=== PATIENT | female | born 1990 | race Caucasian/White ===

== ENCOUNTER 2017-03-27 18:35 | Emergency (ER) | payer SELFPAY ==
[~2017-03-27] VITALS: Wt 104.3 kg
[~2017-03-27 18:35] MED LIST: AMOXICILLIN500 M2 PO; AMOXICILLIN500 M3 PO; ANAPROX DS550 MG PO; BACTRIM DS 8001 TA1 PO; CLINDAMYCIN HC300 MG PO; DICYCLOMINE HCL10 MG PO; Fioricet 325 MG1 TAB PO; HYDROCODONE BIT1 T11 PO; IMITREX50 MG PO; INDERAL LA120 M1 PO; MEDROL DOSEPAK4 MG PO; PERCOCET 325 MG1 TA6 PO; PREDNISONE10 MG PO; PREDNISONE50 MG PO; ROBITUSSIN AC 110 ML PO; VENTOLIN H0.09 MG/AC INH; ZANTAC 150150 MG PO; Zofran4 MG PO
[2017-03-27] MEDS ORDERED: TIZANIDINE HCL4 MG PO (19:00)
[2017-03-27] MEDS ORDERED: LATU40TA PO (19:00)
[2017-03-27] MEDS ORDERED: ESCITALOPRAM OX20 MG PO (19:00)
[2017-03-27 19:47] LABS: BASO # 0.1 10*3/uL (0.0-0.1); BASO % 0.5 % (0.0-1.0); EOS # 0.1 10*3/uL (0.0-0.4); EOS % 0.8 % (1.0-4.0); HEMATOCRIT 40.8 % (37.0-47.0); IG # 0.1 10*3/uL (0.0-0.1); LYMPH # 1.9 10*3/uL (1.3-4.4); LYMPH % 14.6 % (27.0-41.0); MEAN CELL VOLUME 86.8 fl (81.0-99.0); MEAN CORPUSCULAR HGB 29.8 pg (27.0-31.0); MEAN CORPUSCULAR HGB CONC 34.3 g/dl (33.0-37.0); MEAN PLATELET VOLUME 8.8 fl (9.6-12.3); MONO # 0.7 10*3/uL (0.1-1.0); MONO % 5.6 % (3.0-9.0); NEUT # 10.1 10*3/uL (2.3-7.9); PLATELET COUNT AUTOMATED 345 10*3/uL (130-400); RED CELL DISTRI WIDTH 11.9 % (0-14.5)
[2017-03-27 19:52] LABS: BILIRUBIN NEGATIVE (NEGATIVE); BLOOD NEGATIVE (NEGATIVE); CLARITY SL CLOUDY (CLEAR); COLOR YELLOW (YELLOW); GLUCOSE NEGATIVE (NEGATIVE); KETONE NEGATIVE (NEGATIVE); LEUKO ESTERASE TRACE (NEGATIVE); NITRITE NEGATIVE (NEGATIVE); PROTEIN 2+ (NEGATIVE)
[2017-03-27 19:56] LABS: URINE REFLEX COMMENT YES (NO)
[2017-03-27 19:57] LABS: BACTERIA TRACE
[2017-03-27 19:58] LABS: EPITHELIAL CELLS 31-40
[2017-03-27 20:10] LABS: ALBUMIN 3.7 gm/dl (3.1-4.5); ALKALINE PHOSPHATASE 62 U/L (45-117); BILIRUBIN, TOTAL 0.5 mg/dl (0.2-1.0); BUN 15 mg/dl (7-24); CARBON DIOXIDE 26 mmol/L (21-32); CHLORIDE 104 mmol/L (98-107); EST GLOM FILT AFRICAN AMERICAN > 60 ml/min; GLUCOSE 87 mg/dL (65-99); POTASSIUM 3.7 mmol/L (3.5-5.1); SGOT/AST 20 IU/L (3-35); SGPT/ALT 33 U/L (12-78); SODIUM 140 mmol/L (136-145); TOTAL PROTEIN 8.1 gm/dL (6.4-8.2)
[2017-03-27] MEDS ORDERED: ZOFRAN ODT4 MG SL (21:08)
[2017-03-27] MEDS ORDERED: BACTRIM DS 8001 TA1 PO (21:08)
== END 2017-03-28 00:02 | disposition home or self-care (01) ==
LOC: ED 18:35
PROVIDERS: Physician Assistant
DX: N30.00 Acute cystitis without hematuria (principal); R11.2 Nausea with vomiting, unspecified; Z88.1 Allergy status to other antibiotic agents; Z90.49 Acquired absence of other specified parts of digestive tract

== ENCOUNTER 2017-05-04 10:47 | Emergency (ER) | payer SELFPAY ==
[~2017-05-04] VITALS: Wt 104.3 kg
[~2017-05-04 10:47] MED LIST changes: +ESCITALOPRAM OX20 MG PO; +LATU40TA PO; +TIZANIDINE HCL4 MG PO; +ZOFRAN ODT4 MG SL
[2017-05-04 11:06] LABS: BASO % 0.6 % (0.0-1.0); EOS # 0.1 10*3/uL (0.0-0.4); EOS % 1.9 % (1.0-4.0); HEMATOCRIT 42.1 % (37.0-47.0); HEMOGLOBIN 14.1 g/dl (12.0-16.0); LYMPH # 1.4 10*3/uL (1.3-4.4); LYMPH % 20.5 % (27.0-41.0); MEAN CELL VOLUME 88.6 fl (81.0-99.0); MEAN CORPUSCULAR HGB 29.7 pg (27.0-31.0); MEAN CORPUSCULAR HGB CONC 33.5 g/dl (33.0-37.0); MEAN PLATELET VOLUME 9.3 fl (9.6-12.3); MONO # 0.4 10*3/uL (0.1-1.0); MONO % 5.9 % (3.0-9.0); NEUT # 4.8 10*3/uL (2.3-7.9); NEUT % 70.8 % (47.0-73.0); PLATELET COUNT AUTOMATED 274 10*3/uL (130-400); RED BLOOD COUNT 4.75 10*6/uL (4.10-5.10); RED CELL DISTRI WIDTH 12.1 % (0-14.5); WHITE BLOOD COUNT 6.8 10*3/uL (4.8-10.8)
[2017-05-04 11:21] LABS: ALBUMIN 3.7 gm/dl (3.1-4.5); ALKALINE PHOSPHATASE 64 U/L (45-117); BUN 13 mg/dl (7-24); CHLORIDE 103 mmol/L (98-107); CREATININE 0.98 mg/dL (0.55-1.02); SGOT/AST 23 IU/L (3-35); SGPT/ALT 38 U/L (12-78); SODIUM 138 mmol/L (136-145)
[2017-05-04 11:22] LABS: BILIRUBIN NEGATIVE (NEGATIVE); BLOOD NEGATIVE (NEGATIVE); CLARITY SL CLOUDY (CLEAR); COLOR YELLOW (YELLOW); GLUCOSE NEGATIVE (NEGATIVE); KETONE NEGATIVE (NEGATIVE); LEUKO ESTERASE 2+ (NEGATIVE); NITRITE NEGATIVE (NEGATIVE); PH 5.5 (5.0-9.0); SPECIFIC GRAVITY <= 1.005 (1.005-1.030); UROBILINOGEN 0.2 E.U./dl (0.2-1.0)
[2017-05-04] MEDS ORDERED: MACROBID100 M1 PO (11:52)
[2017-05-04] MEDS ORDERED: PRENATAL VITAM1 EAC4 PO (11:52)
== END 2017-05-04 12:32 | disposition home or self-care (01) ==
LOC: ED 10:47
PROVIDERS: Nurse Practitioner Family
DX: O23.40 Unspecified infection of urinary tract in pregnancy, unspecified trimester (principal); R03.0 Elevated blood-pressure reading, without diagnosis of hypertension; Z88.1 Allergy status to other antibiotic agents; Z79.899 Other long term (current) drug therapy; Z32.01 Encounter for pregnancy test, result positive

== ENCOUNTER 2017-10-12 18:39 | Emergency (ER) | payer SELFPAY ==
[~2017-10-12] VITALS: Ht 175.2 cm; Wt 106.6 kg
[~2017-10-12 18:39] MED LIST changes: +MACROBID100 M1 PO; +PRENATAL VITAM1 EAC4 PO
[2017-10-12] MEDS ORDERED: OMNICEF300 MG PO (19:43)
== END 2017-10-12 19:45 | disposition home or self-care (01) ==
LOC: ED 18:39
DX: H66.91 Otitis media, unspecified, right ear (principal); F17.200 Nicotine dependence, unspecified, uncomplicated; Z90.49 Acquired absence of other specified parts of digestive tract; Z79.899 Other long term (current) drug therapy; Z88.1 Allergy status to other antibiotic agents

== ENCOUNTER 2017-12-07 20:25 | Inpatient (IN) | payer OTHER ==
[~2017-12-07] VITALS: Ht 175.3 cm; Wt 119.3 kg
[~2017-12-07 20:25] MED LIST changes: +OMNICEF300 MG PO
[2017-12-07 20:30] VITALS: BP 114/54
[2017-12-07] MEDS ORDERED: ZOFRAN ODT4 MG SL (21:30)
[2017-12-07] MEDS ORDERED: TAMIFLU 75MG CA75 MG PO (21:30)
[2017-12-07 21:38] VITALS: BP 104/50
[2017-12-07 22:12] LABS: BASO % 0.3 % (0.0-1.0); EOS # 0.1 10*3/uL (0.0-0.4); EOS % 1.7 % (1.0-4.0); HEMATOCRIT 41.2 % (37.0-47.0); HEMOGLOBIN 14.1 g/dl (12.0-16.0); LYMPH # 0.2 10*3/uL (1.3-4.4); LYMPH % 3.1 % (27.0-41.0); MEAN CELL VOLUME 87.8 fl (81.0-99.0); MEAN CORPUSCULAR HGB 30.1 pg (27.0-31.0); MEAN CORPUSCULAR HGB CONC 34.2 g/dl (33.0-37.0); MEAN PLATELET VOLUME 9.3 fl (9.6-12.3); MONO # 0.6 10*3/uL (0.1-1.0); MONO % 9.7 % (3.0-9.0); NEUT # 5.5 10*3/uL (2.3-7.9); NEUT % 84.9 % (47.0-73.0); PLATELET COUNT AUTOMATED 214 10*3/uL (130-400); RED BLOOD COUNT 4.69 10*6/uL (4.10-5.10); WHITE BLOOD COUNT 6.5 10*3/uL (4.8-10.8)
[2017-12-07 22:32] LABS: ALBUMIN 3.9 gm/dl (3.1-4.5); ALKALINE PHOSPHATASE 80 U/L (45-117); BUN 14 mg/dl (7-24); CHLORIDE 101 mmol/L (98-107); CREATININE 0.97 mg/dL (0.55-1.02); POTASSIUM 4.1 mmol/L (3.5-5.1); SGOT/AST 75 IU/L (3-35); SGPT/ALT 112 U/L (12-78); SODIUM 137 mmol/L (136-145); TOTAL PROTEIN 7.5 gm/dL (6.4-8.2)
[2017-12-07 22:37] VITALS: BP 115/49
[2017-12-07 23:58] LABS: ACT PARTIAL THROMBO TIME 24.4 SECONDS (20.8-31.5); INTERNATIONAL NORM RATIO 0.9 (2.0-3.5)
[2017-12-08] VITALS (11 sets, daily range): BP systolic 89–108; BP diastolic 35–65
[2017-12-08 02:26] LABS: BILIRUBIN NEGATIVE (NEGATIVE); BLOOD NEGATIVE (NEGATIVE); CLARITY SL CLOUDY (CLEAR); COLOR YELLOW (YELLOW); GLUCOSE NEGATIVE (NEGATIVE); KETONE NEGATIVE (NEGATIVE); LEUKO ESTERASE 1+ (NEGATIVE); NITRITE NEGATIVE (NEGATIVE); PH 6.5 (5.0-9.0); SPECIFIC GRAVITY <= 1.005 (1.005-1.030); UROBILINOGEN 0.2 E.U./dl (0.2-1.0)
[2017-12-08 02:34] LABS: BACTERIA 1+; EPITHELIAL CELLS TNTC
[2017-12-08 02:35] LABS: YEAST TRACE
[2017-12-08 05:53] LABS: BASO % 0.2 % (0.0-1.0); EOS # 0.1 10*3/uL (0.0-0.4); EOS % 1.7 % (1.0-4.0); LYMPH # 0.3 10*3/uL (1.3-4.4); LYMPH % 7.5 % (27.0-41.0); MEAN CELL VOLUME 89.2 fl (81.0-99.0); MEAN CORPUSCULAR HGB 29.8 pg (27.0-31.0); MEAN CORPUSCULAR HGB CONC 33.4 g/dl (33.0-37.0); MEAN PLATELET VOLUME 9.3 fl (9.6-12.3); MONO # 0.5 10*3/uL (0.1-1.0); MONO % 11.8 % (3.0-9.0); NEUT # 3.3 10*3/uL (2.3-7.9); NEUT % 78.3 % (47.0-73.0); PLATELET COUNT AUTOMATED 185 10*3/uL (130-400); RED BLOOD COUNT 3.89 10*6/uL (4.10-5.10); RED CELL DISTRI WIDTH 12.3 % (0-14.5); WHITE BLOOD COUNT 4.2 10*3/uL (4.8-10.8)
[2017-12-08 05:54] LABS: HEMATOCRIT 34.7 % (37.0-47.0); HEMOGLOBIN 11.6 g/dl (12.0-16.0)
[2017-12-08 06:04] LABS: ALBUMIN 3.1 gm/dl (3.1-4.5); BUN 9 mg/dl (7-24); CHLORIDE 109 mmol/L (98-107); CHOLESTEROL 149 mg/dL (<200); CREATININE 0.85 mg/dL (0.55-1.02); PHOSPHOROUS 3.5 mg/dL (2.5-4.9); POTASSIUM 3.8 mmol/L (3.5-5.1); SGOT/AST 53 IU/L (3-35); SGPT/ALT 94 U/L (12-78); SODIUM 139 mmol/L (136-145); TRIGLYCERIDES 100 mg/dl (<150); VLDL CHOLESTEROL 20 mg/dL (6-40)
[2017-12-08 06:05] LABS: ALKALINE PHOSPHATASE 65 U/L (45-117); HDL CHOLESTEROL 34 mg/dl (40-60); LDL CHOLESTEROL 95 mg/dL (9-159); TOTAL PROTEIN 6.5 gm/dL (6.4-8.2)
[2017-12-08 06:07] LABS: TROPONIN I < 0.015 ng/ml (<0.045)
[2017-12-08 06:09] LABS: FREE T4 0.89 ng/dl (0.76-1.46); THYROID STIM HORMONE (HS) 0.894 uIU/ml (0.358-4.75)
[2017-12-08 10:01] LABS: VITAMIN D, 25-HYDROXY 20.8 ng/mL (30-100)
[2017-12-09] VITALS: BP 105/62
[2017-12-09 04:00] VITALS: BP 101/62
[2017-12-09 06:46] LABS: BASO % 0.3 % (0.0-1.0); EOS % 1.3 % (1.0-4.0); HEMATOCRIT 32.9 % (37.0-47.0); HEMOGLOBIN 10.8 g/dl (12.0-16.0); LYMPH % 31.6 % (27.0-41.0); MEAN CELL VOLUME 89.4 fl (81.0-99.0); MEAN CORPUSCULAR HGB 29.3 pg (27.0-31.0); MEAN CORPUSCULAR HGB CONC 32.8 g/dl (33.0-37.0); MEAN PLATELET VOLUME 9.8 fl (9.6-12.3); MONO # 0.5 10*3/uL (0.1-1.0); MONO % 17.4 % (3.0-9.0); NEUT # 1.5 10*3/uL (2.3-7.9); NEUT % 49.1 % (47.0-73.0); PLATELET COUNT AUTOMATED 160 10*3/uL (130-400); RED BLOOD COUNT 3.68 10*6/uL (4.10-5.10); RED CELL DISTRI WIDTH 12.5 % (0-14.5); WHITE BLOOD COUNT 3.1 10*3/uL (4.8-10.8)
[2017-12-09 06:59] LABS: ALBUMIN 2.8 gm/dl (3.1-4.5); ALKALINE PHOSPHATASE 76 U/L (45-117); BUN 7 mg/dl (7-24); CHLORIDE 106 mmol/L (98-107); CREATININE 0.78 mg/dL (0.55-1.02); POTASSIUM 3.6 mmol/L (3.5-5.1); SGOT/AST 86 IU/L (3-35); SGPT/ALT 126 U/L (12-78); SODIUM 138 mmol/L (136-145); TOTAL PROTEIN 6.1 gm/dL (6.4-8.2)
[2017-12-09 08:00] VITALS: BP 111/63
[2017-12-09 12:00] VITALS: BP 111/51
[2017-12-09] MEDS ORDERED: TAMIFLU 75MG CA75 MG PO (13:53)
== END 2017-12-09 14:17 | disposition home or self-care (01) | DRG 872 ==
LOC: ED 20:25 → ICCU 12-08 00:24 → EDHOLD 12-08 00:24 → ICCU 12-08 00:38
PROVIDERS: Internal Medicine; Internal Medicine Hospice and Palliative Medicine; Physician Assistant; Student in an Organized Health Care Education/Training Program
DX: A41.9 Sepsis, unspecified organism (principal); E87.8 Other disorders of electrolyte and fluid balance, not elsewhere classified; E67.8 Other specified hyperalimentation; E44.0 Moderate protein-calorie malnutrition; E55.9 Vitamin D deficiency, unspecified; E66.9 Obesity, unspecified; D72.810 Lymphocytopenia; R73.9 Hyperglycemia, unspecified; D72.821 Monocytosis (symptomatic); J11.1 Influenza due to unidentified influenza virus with other respiratory manifestations; R65.20 Severe sepsis without septic shock; D64.9 Anemia, unspecified; Z68.24 Body mass index [BMI] 24.0-24.9, adult; Z79.899 Other long term (current) drug therapy; Z90.49 Acquired absence of other specified parts of digestive tract; Z88.1 Allergy status to other antibiotic agents

== ENCOUNTER 2017-12-31 13:20 | Emergency (ER) | payer OTHER ==
[~2017-12-31] VITALS: Ht 175.2 cm; Wt 108.9 kg
[~2017-12-31 13:20] MED LIST changes: +TAMIFLU 75MG CA75 MG PO
[2017-12-31 14:07] LABS: BASO % 0.6 % (0.0-1.0); EOS # 0.1 10*3/uL (0.0-0.4); EOS % 1.9 % (1.0-4.0); HEMATOCRIT 41.5 % (37.0-47.0); HEMOGLOBIN 13.8 g/dl (12.0-16.0); LYMPH # 1.8 10*3/uL (1.3-4.4); LYMPH % 29.1 % (27.0-41.0); MEAN CELL VOLUME 88.7 fl (81.0-99.0); MEAN CORPUSCULAR HGB 29.5 pg (27.0-31.0); MEAN CORPUSCULAR HGB CONC 33.3 g/dl (33.0-37.0); MEAN PLATELET VOLUME 9.6 fl (9.6-12.3); MONO # 0.5 10*3/uL (0.1-1.0); MONO % 7.1 % (3.0-9.0); NEUT # 3.8 10*3/uL (2.3-7.9); NEUT % 60.5 % (47.0-73.0); PLATELET COUNT AUTOMATED 316 10*3/uL (130-400); RED BLOOD COUNT 4.68 10*6/uL (4.10-5.10); RED CELL DISTRI WIDTH 12.3 % (0-14.5); WHITE BLOOD COUNT 6.3 10*3/uL (4.8-10.8)
[2017-12-31 14:21] LABS: ACT PARTIAL THROMBO TIME 22.8 SECONDS (20.8-31.5); INTERNATIONAL NORM RATIO 0.9 (2.0-3.5)
[2017-12-31 14:22] LABS: BUN 17 mg/dl (7-24); CHLORIDE 105 mmol/L (98-107); CREATININE 0.96 mg/dL (0.55-1.02); POTASSIUM 3.9 mmol/L (3.5-5.1); SODIUM 138 mmol/L (136-145)
[2017-12-31 14:23] LABS: TROPONIN I < 0.015 ng/ml (<0.045)
== END 2017-12-31 14:45 | disposition home or self-care (01) ==
LOC: ED 13:20
PROVIDERS: Emergency Medicine
DX: R06.02 Shortness of breath (principal); F45.8 Other somatoform disorders; Z90.49 Acquired absence of other specified parts of digestive tract; Z88.1 Allergy status to other antibiotic agents

== ENCOUNTER 2018-01-09 13:32 | Emergency (ER) | payer OTHER ==
[~2018-01-09] VITALS: Wt 99.8 kg
[2018-01-09 13:59] LABS: BILIRUBIN NEGATIVE (NEGATIVE); BLOOD NEGATIVE (NEGATIVE); CLARITY CLOUDY (CLEAR); COLOR YELLOW (YELLOW); GLUCOSE NEGATIVE (NEGATIVE); KETONE NEGATIVE (NEGATIVE); LEUKO ESTERASE 2+ (NEGATIVE); NITRITE NEGATIVE (NEGATIVE); PH 6.5 (5.0-9.0); UROBILINOGEN 0.2 E.U./dl (0.2-1.0)
[2018-01-09 14:12] LABS: BASO % 0.2 % (0.0-1.0); EOS % 0.2 % (1.0-4.0); HEMATOCRIT 40.2 % (37.0-47.0); HEMOGLOBIN 13.8 g/dl (12.0-16.0); LYMPH # 0.7 10*3/uL (1.3-4.4); LYMPH % 5.4 % (27.0-41.0); MEAN CELL VOLUME 87.6 fl (81.0-99.0); MEAN CORPUSCULAR HGB 30.1 pg (27.0-31.0); MEAN CORPUSCULAR HGB CONC 34.3 g/dl (33.0-37.0); MEAN PLATELET VOLUME 9.4 fl (9.6-12.3); MONO # 0.6 10*3/uL (0.1-1.0); MONO % 4.6 % (3.0-9.0); NEUT # 11.2 10*3/uL (2.3-7.9); NEUT % 89.2 % (47.0-73.0); PLATELET COUNT AUTOMATED 245 10*3/uL (130-400); RED BLOOD COUNT 4.59 10*6/uL (4.10-5.10); RED CELL DISTRI WIDTH 12.3 % (0-14.5); WHITE BLOOD COUNT 12.5 10*3/uL (4.8-10.8)
[2018-01-09 14:24] LABS: BACTERIA 1+
[2018-01-09 14:25] LABS: EPITHELIAL CELLS 51-100; WBC 51-100 wbc/hpf (0-5)
[2018-01-09 14:26] LABS: ALBUMIN 3.8 gm/dl (3.1-4.5); ALKALINE PHOSPHATASE 66 U/L (45-117); BUN 13 mg/dl (7-24); CHLORIDE 102 mmol/L (98-107); CREATININE 0.87 mg/dL (0.55-1.02); LIPASE 206 U/L (73-393); POTASSIUM 4.1 mmol/L (3.5-5.1); SGOT/AST 33 IU/L (3-35); SGPT/ALT 59 U/L (12-78); SODIUM 135 mmol/L (136-145); TOTAL PROTEIN 7.8 gm/dL (6.4-8.2)
[2018-01-09] MEDS ORDERED: SEPTDS PO (17:00)
[2018-01-09] MEDS ORDERED: ZOFRAN4 MG PO (17:00)
== END 2018-01-09 17:10 | disposition home or self-care (01) ==
LOC: ED 13:32
PROVIDERS: Nurse Practitioner Family
DX: K52.9 Noninfective gastroenteritis and colitis, unspecified (principal); N39.0 Urinary tract infection, site not specified; R03.0 Elevated blood-pressure reading, without diagnosis of hypertension; E78.00 Pure hypercholesterolemia, unspecified; E66.9 Obesity, unspecified; Z68.39 Body mass index [BMI] 39.0-39.9, adult; Z90.49 Acquired absence of other specified parts of digestive tract; Z88.1 Allergy status to other antibiotic agents

== ENCOUNTER 2018-05-18 16:04 | Emergency (ER) | payer OTHER ==
[~2018-05-18] VITALS: Ht 175.2 cm; Wt 108.9 kg
[~2018-05-18 16:04] MED LIST changes: +SEPTDS PO; +ZOFRAN4 MG PO
== END 2018-05-18 17:52 | disposition home or self-care (01) ==
LOC: ED 16:04
DX: Z23 Encounter for immunization (principal); R03.0 Elevated blood-pressure reading, without diagnosis of hypertension; E66.9 Obesity, unspecified; Z79.899 Other long term (current) drug therapy; Z68.30 Body mass index [BMI] 30.0-30.9, adult; Z90.49 Acquired absence of other specified parts of digestive tract

== ENCOUNTER 2018-05-26 20:23 | Emergency (ER) | payer OTHER ==
[~2018-05-26] VITALS: Ht 175.2 cm; Wt 108.9 kg
== END 2018-05-26 21:03 | disposition home or self-care (01) ==
LOC: ED 20:23
DX: Z23 Encounter for immunization (principal); Z88.1 Allergy status to other antibiotic agents

== ENCOUNTER 2018-05-29 14:33 | Emergency (ER) | payer OTHER ==
[~2018-05-29] VITALS: Ht 175.2 cm; Wt 108.9 kg
== END 2018-05-29 15:13 | disposition home or self-care (01) ==
LOC: ED 14:33
DX: Z23 Encounter for immunization (principal); E66.9 Obesity, unspecified; Z88.1 Allergy status to other antibiotic agents; Z79.899 Other long term (current) drug therapy; Z68.30 Body mass index [BMI] 30.0-30.9, adult; Z90.49 Acquired absence of other specified parts of digestive tract; W55.03XD Scratched by cat, subsequent encounter

== ENCOUNTER 2019-10-07 21:43 | Emergency (ER) | payer OTHER ==
[~2019-10-07] VITALS: Ht 175.2 cm; Wt 108.9 kg
== END 2019-10-07 23:51 | disposition home or self-care (01) ==
LOC: ED 21:43
DX: S60.212A Contusion of left wrist, initial encounter (principal); E66.9 Obesity, unspecified; Z88.1 Allergy status to other antibiotic agents; Z68.39 Body mass index [BMI] 39.0-39.9, adult; W23.0XXA Caught, crushed, jammed, or pinched between moving objects, initial encounter; Y93.89 Activity, other specified; Y92.89 Other specified places as the place of occurrence of the external cause; Y99.0 Civilian activity done for income or pay

== ENCOUNTER 2019-12-07 06:20 | Emergency (ER) | payer SELFPAY ==
[~2019-12-07] VITALS: Ht 175.2 cm; Wt 104.3 kg
== END 2019-12-07 07:19 | disposition home or self-care (01) ==
LOC: ED 06:20
DX: S91.332A Puncture wound without foreign body, left foot, initial encounter (principal); M60.9 Myositis, unspecified; Z23 Encounter for immunization; F41.9 Anxiety disorder, unspecified; G43.909 Migraine, unspecified, not intractable, without status migrainosus; X58.XXXA Exposure to other specified factors, initial encounter; Y93.89 Activity, other specified; Y92.89 Other specified places as the place of occurrence of the external cause; Y99.8 Other external cause status

== ENCOUNTER 2020-08-11 18:45 | Emergency (ER) | payer SELFPAY ==
[~2020-08-11] VITALS: Ht 175.2 cm; Wt 108.9 kg
[2020-08-11 19:36] LABS: BASO # 0.1 10*3/uL (0.0-0.1); BASO % 0.7 % (0.0-1.0); EOS # 0.2 10*3/uL (0.0-0.4); EOS % 2.1 % (1.0-4.0); HEMATOCRIT 39.4 % (37.0-47.0); LYMPH # 2.2 10*3/uL (1.3-4.4); LYMPH % 25.1 % (27.0-41.0); MEAN CORPUSCULAR HGB 29.6 pg (27.0-31.0); MONO # 0.5 10*3/uL (0.1-1.0); MONO % 5.9 % (3.0-9.0); NEUT # 5.7 10*3/uL (2.3-7.9); NEUT % 65.9 % (47.0-73.0); PLATELET COUNT AUTOMATED 315 10*3/uL (130-400); RED BLOOD COUNT 4.53 10*6/uL (4.10-5.10); RED CELL DISTRI WIDTH 11.9 % (0-14.5); WHITE BLOOD COUNT 8.6 10*3/uL (4.8-10.8)
[2020-08-11 19:52] LABS: ALBUMIN 3.6 gm/dl (3.1-4.5); ALKALINE PHOSPHATASE 61 U/L (45-117); BUN 15 mg/dl (7-24); CHLORIDE 105 mmol/L (98-107); CREATININE 0.95 mg/dL (0.55-1.02); LIPASE 245 U/L (73-393); POTASSIUM 3.5 mmol/L (3.5-5.1); SGOT/AST 28 IU/L (3-35); SGPT/ALT 67 U/L (12-78); SODIUM 139 mmol/L (136-145); TOTAL PROTEIN 7.5 gm/dL (6.4-8.2)
[2020-08-11 20:03] LABS: BILIRUBIN Negative (Negative); BLOOD Negative (Negative); CLARITY Cloudy (Clear); COLOR Yellow (Yellow); GLUCOSE Negative (Negative); KETONE Negative (Negative); LEUKO ESTERASE 2+ (Negative); NITRITE Positive (Negative); PH 6.5 (4.5-8.0)
[2020-08-11 20:15] LABS: BACTERIA 1+
[2020-08-11] MEDS ORDERED: CEPHALEXIN500 M1 PO (20:48)
== END 2020-08-11 20:56 | disposition home or self-care (01) ==
LOC: ED 18:45
PROVIDERS: Nurse Practitioner Family
DX: N39.0 Urinary tract infection, site not specified (principal); Z88.8 Allergy status to other drugs, medicaments and biological substances; Z90.49 Acquired absence of other specified parts of digestive tract

== ENCOUNTER 2021-03-12 23:01 | Emergency (ER) | payer SELFPAY ==
[~2021-03-12] VITALS: Ht 175.2 cm; Wt 104.3 kg
[~2021-03-12 23:01] MED LIST changes: +CEPHALEXIN500 M1 PO
[2021-03-13 00:07] LABS: BASO % 0.3 % (0.0-1.0); EOS # 0.1 10*3/uL (0.0-0.4); EOS % 1.1 % (1.0-4.0); LYMPH # 2.1 10*3/uL (1.3-4.4); LYMPH % 17.8 % (27.0-41.0); MEAN CORPUSCULAR HGB 30.3 pg (27.0-31.0); MEAN CORPUSCULAR HGB CONC 33.6 g/dl (33.0-37.0); MEAN PLATELET VOLUME 9.2 fl (9.6-12.3); MONO # 1.1 10*3/uL (0.1-1.0); MONO % 9.1 % (3.0-9.0); NEUT # 8.4 10*3/uL (2.3-7.9); NEUT % 71.4 % (47.0-73.0); PLATELET COUNT AUTOMATED 322 10*3/uL (130-400); RED CELL DISTRI WIDTH 12.4 % (0-14.5); WHITE BLOOD COUNT 11.8 10*3/uL (4.8-10.8)
[2021-03-13 00:23] LABS: ALBUMIN 2.8 gm/dl (3.1-4.5); ALKALINE PHOSPHATASE 109 U/L (45-117); BUN 11 mg/dl (7-24); CHLORIDE 108 mmol/L (98-107); CREATININE 0.73 mg/dL (0.55-1.02); POTASSIUM 3.6 mmol/L (3.5-5.1); SGOT/AST 15 IU/L (3-35); SGPT/ALT 69 U/L (12-78); SODIUM 135 mmol/L (136-145); TOTAL PROTEIN 6.9 gm/dL (6.4-8.2)
== END 2021-03-13 02:27 | disposition home or self-care (01) ==
LOC: ED 23:01
PROVIDERS: Physician Assistant
DX: G89.18 Other acute postprocedural pain (principal); N64.4 Mastodynia; Z98.82 Breast implant status; Z88.1 Allergy status to other antibiotic agents; Z79.2 Long term (current) use of antibiotics; Z90.49 Acquired absence of other specified parts of digestive tract

== ENCOUNTER 2022-08-04 13:24 | Emergency (ER) | payer OTHER ==
[~2022-08-04] VITALS: Wt 108.9 kg
[~2022-08-04 13:24] MED LIST changes: +DECADRON6 M1 PO
[2022-08-04 14:59] LABS: BASO % 0.6 % (0.0-1.0); EOS # 0.1 10*3/uL (0.0-0.4); EOS % 1.8 % (1.0-4.0); HEMATOCRIT 36.9 % (37.0-47.0); LYMPH # 1.8 10*3/uL (1.3-4.4); LYMPH % 25.3 % (27.0-41.0); MEAN CELL VOLUME 85.6 fl (81.0-99.0); MEAN CORPUSCULAR HGB 29.7 pg (27.0-31.0); MEAN CORPUSCULAR HGB CONC 34.7 g/dl (33.0-37.0); MEAN PLATELET VOLUME 8.2 fl (9.6-12.3); MONO # 0.8 10*3/uL (0.1-1.0); NEUT # 4.3 10*3/uL (2.3-7.9); NEUT % 60.6 % (47.0-73.0); PLATELET COUNT AUTOMATED 386 10*3/uL (130-400); RED BLOOD COUNT 4.31 10*6/uL (4.10-5.10); RED CELL DISTRI WIDTH 11.5 % (0-14.5); WHITE BLOOD COUNT 7.1 10*3/uL (4.8-10.8)
[2022-08-04 15:15] LABS: ALKALINE PHOSPHATASE 95 U/L (45-117); BUN 9 mg/dl (7-24); CHLORIDE 103 mmol/L (98-107); CREATININE 0.84 mg/dL (0.55-1.02); POTASSIUM 3.5 mmol/L (3.5-5.1); SGPT/ALT 51 U/L (12-78); SODIUM 135 mmol/L (136-145); TOTAL PROTEIN 7.6 gm/dL (6.4-8.2)
[2022-08-04] MEDS ORDERED: TYLENOL325 M1 PO (16:05)
[2022-08-04] MEDS ORDERED: NAPROSYN500 MG PO (16:05)
== END 2022-08-04 16:27 | disposition home or self-care (01) ==
LOC: ED 13:24
PROVIDERS: Emergency Medicine
DX: N64.4 Mastodynia (principal); F17.200 Nicotine dependence, unspecified, uncomplicated; Z90.49 Acquired absence of other specified parts of digestive tract; E66.9 Obesity, unspecified; Z88.1 Allergy status to other antibiotic agents

== ENCOUNTER 2022-11-01 10:59 | Emergency (ER) | payer OTHER ==
[~2022-11-01] VITALS: Ht 175.2 cm; Wt 108.9 kg
[~2022-11-01 10:59] MED LIST changes: +NAPROSYN500 MG PO; +TYLENOL325 M1 PO
== END 2022-11-01 12:12 | disposition home or self-care (01) ==
LOC: ED 10:59
DX: T81.89XA Other complications of procedures, not elsewhere classified, initial encounter (principal); Z88.1 Allergy status to other antibiotic agents; Z90.49 Acquired absence of other specified parts of digestive tract; Y92.89 Other specified places as the place of occurrence of the external cause

== ENCOUNTER 2023-09-01 17:24 | Emergency (ER) | payer SELFPAY ==
[~2023-09-01] VITALS: Ht 175.2 cm; Wt 88.5 kg
[2023-09-01] MEDS ORDERED: PREDNISONE20 M1 PO (19:39)
== END 2023-09-01 19:50 | disposition home or self-care (01) ==
LOC: ED 17:24
DX: M94.0 Chondrocostal junction syndrome [Tietze] (principal); J11.1 Influenza due to unidentified influenza virus with other respiratory manifestations; G43.909 Migraine, unspecified, not intractable, without status migrainosus; F41.9 Anxiety disorder, unspecified; Z86.16 Personal history of COVID-19; Z88.1 Allergy status to other antibiotic agents; Z20.822 Contact with and (suspected) exposure to COVID-19

== ENCOUNTER 2023-11-13 16:28 | Emergency (ER) | payer SELFPAY ==
[~2023-11-13] VITALS: Ht 175.2 cm; Wt 83.9 kg
[~2023-11-13 16:28] MED LIST changes: +PREDNISONE20 M1 PO
[2023-11-13] MEDS ORDERED: ADIPEX-P37.5 M2 PO (16:58)
[2023-11-13] MEDS ORDERED: SODIUM CHLORIDE 0.9% 1,000 ML IV ONE (17:00)
[2023-11-13] MEDS ORDERED: diphenhydrAMINE hydrochloride 50 MG/ML VIAL IV ONE (17:00)
[2023-11-13] MEDS ORDERED: Ketorolac Tromethamine 30 MG/ML VIAL IV ONE (17:00)
[2023-11-13] MEDS ORDERED: Metoclopramide Hydrochloride 10 MG/2 ML AMP IV ONE (17:00)
[2023-11-13 17:08] LABS: BILIRUBIN Negative (Negative); BLOOD Negative (Negative); CLARITY Clear (Clear); COLOR Yellow (Yellow); GLUCOSE Negative (Negative); KETONE Negative (Negative); LEUKO ESTERASE Trace (Negative); NITRITE Negative (Negative); SPECIFIC GRAVITY <= 1.005 (1.001-1.030); UROBILINOGEN 0.2 E.U./dl (0.0-1.0)
[2023-11-13 17:09] LABS: BASO % 0.7 % (0.0-1.0); EOS # 0.2 10*3/uL (0.0-0.4); EOS % 3.6 % (1.0-4.0); HEMATOCRIT 40.3 % (37.0-47.0); LYMPH # 2.1 10*3/uL (1.3-4.4); LYMPH % 37.7 % (27.0-41.0); MEAN CORPUSCULAR HGB 29.6 pg (27.0-31.0); MEAN CORPUSCULAR HGB CONC 33.3 g/dl (33.0-37.0); MONO # 0.3 10*3/uL (0.1-1.0); MONO % 5.9 % (3.0-9.0); NEUT # 2.9 10*3/uL (2.3-7.9); NEUT % 51.9 % (47.0-73.0); PLATELET COUNT AUTOMATED 295 10*3/uL (130-400); RED BLOOD COUNT 4.53 10*6/uL (4.10-5.10); RED CELL DISTRI WIDTH 11.9 % (0-14.5); WHITE BLOOD COUNT 5.6 10*3/uL (4.8-10.8)
[2023-11-13 17:40] LABS: BUN 8 mg/dl (9-23); CHLORIDE 104 mmol/L (98-107); POTASSIUM 3.7 mmol/L (3.4-5.1)
[2023-11-13 17:44] LABS: BACTERIA 1+; EPITHELIAL CELLS 16-20
[2023-11-13] MEDS ORDERED: Dexamethasone Sodium Phospha 20 MG/5 ML VIAL IV ONE (18:45)
== END 2023-11-13 19:35 | disposition home or self-care (01) ==
LOC: ED 16:28
PROVIDERS: Nurse Practitioner Family
DX: G43.909 Migraine, unspecified, not intractable, without status migrainosus (principal); M54.2 Cervicalgia; F41.9 Anxiety disorder, unspecified; R20.0 Anesthesia of skin; Z88.1 Allergy status to other antibiotic agents; Z90.49 Acquired absence of other specified parts of digestive tract; Z79.899 Other long term (current) drug therapy

== ENCOUNTER 2024-03-30 21:29 | Emergency (ER) | payer OTHER ==
[~2024-03-30] VITALS: Ht 175.2 cm; Wt 86.2 kg
[~2024-03-30 21:29] MED LIST changes: +ADIPEX-P37.5 M2 PO
[2024-03-30] MEDS ORDERED: methylPREDNISolone sod succ 125 MG VIAL IV ONE (22:45)
[2024-03-30] MEDS ORDERED: diphenhydrAMINE hydrochloride 50 MG/ML VIAL IV ONE (22:45)
[2024-03-30] MEDS ORDERED: FAMOTIDINE 50 ML IV ONE (22:45)
[2024-03-31] MEDS ORDERED: EPINEPHrine Hydrochloride 1 MG/ML AMP IM ONE (00:35)
== END 2024-03-31 01:29 | disposition home or self-care (01) ==
LOC: ED 21:29
DX: J30.81 Allergic rhinitis due to animal (cat) (dog) hair and dander (principal); E66.9 Obesity, unspecified; Z79.899 Other long term (current) drug therapy; Z88.1 Allergy status to other antibiotic agents; Z68.30 Body mass index [BMI] 30.0-30.9, adult; Z90.49 Acquired absence of other specified parts of digestive tract

== ENCOUNTER 2024-11-12 09:53 | Emergency (ER) | payer OTHER ==
[~2024-11-12] VITALS: Ht 175.2 cm; Wt 92.1 kg
[2024-11-12] MEDS ORDERED: MORPHINE Sulfate 2 MG/ML SYR IV PRN (10:20)
[2024-11-12] MEDS ORDERED: Ondansetron Hydrochloride 4 MG/2 ML VIAL IV ONE (10:20)
[2024-11-12] MEDS ORDERED: SODIUM CHLORIDE 0.9% 1,000 ML IV ONE (10:20)
[2024-11-12] MEDS ORDERED: OZEMPIC0.25 MG/03 SQ (10:30)
[2024-11-12 10:40] LABS: BASO % 0.5 % (0.0-1.0); EOS # 0.2 10*3/uL (0.0-0.4); HEMATOCRIT 40.3 % (37.0-47.0); MEAN CELL VOLUME 87.2 fl (81.0-99.0); MEAN CORPUSCULAR HGB 30.3 pg (27.0-31.0); MEAN CORPUSCULAR HGB CONC 34.7 g/dl (33.0-37.0); MEAN PLATELET VOLUME 9.1 fl (9.6-12.3); MONO # 0.4 10*3/uL (0.1-1.0); MONO % 4.9 % (3.0-9.0); NEUT # 5.4 10*3/uL (2.3-7.9); NEUT % 71.9 % (47.0-73.0); PLATELET COUNT AUTOMATED 260 10*3/uL (130-400); RED BLOOD COUNT 4.62 10*6/uL (4.10-5.10); RED CELL DISTRI WIDTH 11.9 % (0-14.5); WHITE BLOOD COUNT 7.5 10*3/uL (4.8-10.8)
[2024-11-12 10:54] LABS: BILIRUBIN Negative (Negative); BLOOD Negative (Negative); CLARITY Clear (Clear); COLOR Yellow (Yellow); GLUCOSE Negative (Negative); KETONE Negative (Negative); LEUKO ESTERASE 2+ (Negative); NITRITE Negative (Negative); SPECIFIC GRAVITY <= 1.005 (1.001-1.030); UROBILINOGEN 0.2 E.U./dl (0.0-1.0)
[2024-11-12 10:59] LABS: BUN 15 mg/dl (9-23); CHLORIDE 103 mmol/L (98-107); POTASSIUM 3.7 mmol/L (3.4-5.1)
[2024-11-12 11:08] LABS: BACTERIA 2+; EPITHELIAL CELLS 16-20; WBC 21-30 wbc/hpf (0-5)
[2024-11-12] MEDS ORDERED: cefTRIAXone Sodium 1 GM/10 ML SYR IV ONE (11:25)
[2024-11-12] MEDS ORDERED: SEPTDS PO (12:20)
[2024-11-12] MEDS ORDERED: MELOXICAM15 MG PO (12:20)
== END 2024-11-12 12:26 | disposition home or self-care (01) ==
LOC: ED 09:53
PROVIDERS: Emergency Medicine
DX: N39.0 Urinary tract infection, site not specified (principal); M54.50 Low back pain, unspecified; R11.2 Nausea with vomiting, unspecified; Z88.1 Allergy status to other antibiotic agents; Z79.899 Other long term (current) drug therapy; Z90.49 Acquired absence of other specified parts of digestive tract

== ENCOUNTER 2024-11-15 01:06 | Emergency (ER) | payer OTHER ==
[~2024-11-15] VITALS: Ht 175.2 cm; Wt 90.7 kg
[~2024-11-15 01:06] MED LIST changes: +MELOXICAM15 MG PO; +OZEMPIC0.25 MG/03 SQ
[2024-11-15] MEDS ORDERED: FAMOTIDINE 20 MG TAB PO ONE (01:35)
[2024-11-15] MEDS ORDERED: methylPREDNISolone sod succ 125 MG VIAL IM ONE (01:35)
[2024-11-15 01:59] LABS: BILIRUBIN Negative (Negative); BLOOD Negative (Negative); CLARITY Clear (Clear); COLOR Dark Yellow (Yellow); GLUCOSE Negative (Negative); KETONE Negative (Negative); LEUKO ESTERASE Trace (Negative); NITRITE Positive (Negative); SPECIFIC GRAVITY <= 1.005 (1.001-1.030)
[2024-11-15 02:17] LABS: BACTERIA 1+; RBC 0-2 rbc/hpf (0-2)
[2024-11-15] MEDS ORDERED: Nitrofurantoin Monohydrate/N 100 MG CAP PO ONE (02:20)
[2024-11-15] MEDS ORDERED: MACROBID100 M1 PO (02:25)
== END 2024-11-15 02:44 | disposition home or self-care (01) ==
LOC: ED 01:06
PROVIDERS: Internal Medicine
DX: N39.0 Urinary tract infection, site not specified (principal); T36.8X5A Adverse effect of other systemic antibiotics, initial encounter; R21 Rash and other nonspecific skin eruption; G43.909 Migraine, unspecified, not intractable, without status migrainosus; F41.9 Anxiety disorder, unspecified; Z86.16 Personal history of COVID-19; Z88.1 Allergy status to other antibiotic agents; Z90.49 Acquired absence of other specified parts of digestive tract; Y92.009 Unspecified place in unspecified non-institutional (private) residence as the place of occurrence of the external cause

== ENCOUNTER 2024-12-26 17:39 | Emergency (ER) | payer OTHER ==
[~2024-12-26] VITALS: Ht 175.2 cm; Wt 90.7 kg
[2024-12-26 18:00] VITALS: BP 147/95
[2024-12-26] MEDS ORDERED: VITAMIN D31250 MC1 PO (18:02)
[2024-12-26] MEDS ORDERED: PREDNISONE10 MG PO (18:02)
[2024-12-26] MEDS ORDERED: FUROSEMIDE20 M1 PO (18:03)
[2024-12-26] MEDS ORDERED: DULOXETINE HCL30 MG PO (18:03)
[2024-12-26] MEDS ORDERED: POTASSIUM CHLO10 ME5 PO (18:03)
[2024-12-26] MEDS ORDERED: HYDROXYZINE PAM50 MG PO (18:04)
[2024-12-26 19:18] LABS: BILIRUBIN Negative (Negative); BLOOD Negative (Negative); CLARITY Clear (Clear); COLOR Yellow (Yellow); GLUCOSE Negative (Negative); KETONE Negative (Negative); LEUKO ESTERASE Trace (Negative); NITRITE Negative (Negative); PH 7.5 (4.5-8.0); SPECIFIC GRAVITY <= 1.005 (1.001-1.030)
[2024-12-26 19:24] LABS: BASO # 0.1 10*3/uL (0.0-0.1); BASO % 0.5 % (0.0-1.0); EOS # 0.1 10*3/uL (0.0-0.4); EOS % 1.5 % (1.0-4.0); HEMATOCRIT 42.1 % (37.0-47.0); MEAN CELL VOLUME 89.8 fl (81.0-99.0); MEAN CORPUSCULAR HGB 30.1 pg (27.0-31.0); MEAN CORPUSCULAR HGB CONC 33.5 g/dl (33.0-37.0); MEAN PLATELET VOLUME 8.7 fl (9.6-12.3); MONO # 0.7 10*3/uL (0.1-1.0); NEUT # 5.3 10*3/uL (2.3-7.9); NEUT % 57.5 % (47.0-73.0); PLATELET COUNT AUTOMATED 329 10*3/uL (130-400); RED BLOOD COUNT 4.69 10*6/uL (4.10-5.10); RED CELL DISTRI WIDTH 12.4 % (0-14.5); WHITE BLOOD COUNT 9.2 10*3/uL (4.8-10.8)
[2024-12-26 19:42] LABS: ALKALINE PHOSPHATASE 42 U/L (46-116); BUN 16 mg/dl (9-23); CHLORIDE 101 mmol/L (98-107); POTASSIUM 3.7 mmol/L (3.4-5.1); SGPT/ALT 25 U/L (5-49); TOTAL PROTEIN 7.3 gm/dL (6.0-8.0)
[2024-12-26 19:46] LABS: BACTERIA 2+
[2024-12-26] MEDS ORDERED: ACETAMINOPHEN 325 MG TAB PO ONE (20:40)
[2024-12-26] MEDS ORDERED: SODIUM CHLORIDE 0.9% 1,000 ML IV ONE (20:40)
[2024-12-26 22:30] VITALS: BP 128/73
[2024-12-27 06:18] VITALS: BP 118/73
[2024-12-27] MEDS ORDERED: IBUPROFEN 600 MG TAB PO ONE (07:10)
[2024-12-27 10:30] VITALS: BP 120/68
== END 2024-12-27 11:12 | disposition short-term general hospital (02) ==
LOC: ED 17:39 → EDHOLD 12-27 07:38 → ED 12-27 11:12
PROVIDERS: Nurse Practitioner
DX: G61.0 Guillain-Barre syndrome (principal); R20.0 Anesthesia of skin; R25.2 Cramp and spasm; Z88.1 Allergy status to other antibiotic agents; Z88.2 Allergy status to sulfonamides; Z79.899 Other long term (current) drug therapy; Z90.49 Acquired absence of other specified parts of digestive tract

== ENCOUNTER 2025-03-09 12:38 | Emergency (ER) | payer OTHER ==
[~2025-03-09] VITALS: Wt 104.3 kg
[~2025-03-09 12:38] MED LIST changes: +DULOXETINE HCL30 MG PO; +FUROSEMIDE20 M1 PO; +HYDROXYZINE PAM50 MG PO; +POTASSIUM CHLO10 ME5 PO; +VITAMIN D31250 MC1 PO
[2025-03-09] MEDS ORDERED: Acetaminophen/Oxycodone 5 MG/325 MG TABLET PO ONE (14:15)
[2025-03-09] MEDS ORDERED: NAPROSYN500 MG PO (16:17)
== END 2025-03-09 16:19 | disposition home or self-care (01) ==
LOC: ED 12:38
DX: S46.912A Strain of unspecified muscle, fascia and tendon at shoulder and upper arm level, left arm, initial encounter (principal); F41.9 Anxiety disorder, unspecified; G43.909 Migraine, unspecified, not intractable, without status migrainosus; E66.9 Obesity, unspecified; Z88.1 Allergy status to other antibiotic agents; Z88.2 Allergy status to sulfonamides; Z79.899 Other long term (current) drug therapy; Z68.30 Body mass index [BMI] 30.0-30.9, adult; Z90.49 Acquired absence of other specified parts of digestive tract; W07.XXXA Fall from chair, initial encounter; Y93.89 Activity, other specified; Y92.89 Other specified places as the place of occurrence of the external cause; Y99.8 Other external cause status

== ENCOUNTER 2025-04-29 14:14 | Emergency (ER) | payer OTHER ==
[2025-04-29] MEDS ORDERED: NEURONTIN600 MG PO (15:05)
[2025-04-29] MEDS ORDERED: Ondansetron Hydrochloride 4 MG/2 ML VIAL IV ONE (15:55)
[2025-04-29] MEDS ORDERED: diazePAM 5 MG TAB PO ONE (15:55)
[2025-04-29] MEDS ORDERED: SODIUM CHLORIDE 0.9% 500 ML IV ONE (15:55)
[2025-04-29 16:04] LABS: BASO # 0.0 10*3/uL (0.0-0.1); BASO % 0.2 % (0.0-1.0); EOS # 0.0 10*3/uL (0.0-0.4); EOS % 0.3 % (1.0-4.0); MEAN CELL VOLUME 89.3 fl (81.0-99.0); MEAN CORPUSCULAR HGB 30.5 pg (27.0-31.0); MEAN PLATELET VOLUME 8.9 fl (9.6-12.3); MONO # 0.8 10*3/uL (0.1-1.0); MONO % 8.0 % (3.0-9.0); NEUT # 7.4 10*3/uL (2.3-7.9); NEUT % 74.4 % (47.0-73.0); NUCLEATED RED BLOOD CELL 0.0 % (0.0-0.0); NUCLEATED RED BLOOD CELL 0.0 10*3/uL (0.0-0.0); PLATELET COUNT AUTOMATED 342 10*3/uL (130-400); RED CELL DISTRI WIDTH 12.2 % (0-14.5)
[2025-04-29 16:29] LABS: BUN 14 mg/dl (9-23)
[2025-04-29] MEDS ORDERED: PERCOCET 5-3251 EACH PO (17:02)
[2025-04-29] MEDS ORDERED: VALIUM5 MG PO (17:02)
[2025-04-29] MEDS ORDERED: Ondansetron4 MG PO (17:02)
== END 2025-04-29 17:24 | disposition home or self-care (01) ==
LOC: ED 14:14
PROVIDERS: Emergency Medicine
DX: L93.0 Discoid lupus erythematosus (principal); M79.10 Myalgia, unspecified site; M54.6 Pain in thoracic spine; M54.2 Cervicalgia; M79.605 Pain in left leg; M79.604 Pain in right leg; M79.601 Pain in right arm; M79.602 Pain in left arm; Z88.1 Allergy status to other antibiotic agents; Z88.2 Allergy status to sulfonamides; Z79.899 Other long term (current) drug therapy; Z90.49 Acquired absence of other specified parts of digestive tract

== ENCOUNTER 2025-05-02 20:30 | Emergency (ER) | payer OTHER ==
[~2025-05-02] VITALS: Ht 175.2 cm; Wt 113.4 kg
[~2025-05-02 20:30] MED LIST changes: +NEURONTIN600 MG PO; +Ondansetron4 MG PO; +PERCOCET 5-3251 EACH PO; +VALIUM5 MG PO
[2025-05-02] MEDS ORDERED: diazePAM 5 MG TAB PO ONE (22:40)
[2025-05-02] MEDS ORDERED: Ondansetron Hydrochloride 4 MG TAB PO ONE (22:40)
== END 2025-05-02 23:53 | disposition home or self-care (01) ==
LOC: ED 20:30
DX: M32.9 Systemic lupus erythematosus, unspecified (principal); Z90.49 Acquired absence of other specified parts of digestive tract; Z88.1 Allergy status to other antibiotic agents; Z88.8 Allergy status to other drugs, medicaments and biological substances